=== PATIENT | male | born 1985 | race Caucasian/White ===

== ENCOUNTER 2016-08-17 15:08 | Inpatient (IN) | payer MEDICAID, OTHER ==
[~2016-08-17] VITALS: Ht 165.1 cm; Wt 125.0 kg
[~2016-08-17 15:08] MED LIST: AMN100C PO; CLOZ100T6 PO; HYDR50CA3 PO; LITH300T PO; Therapeutic Multivit/Minerals PO
--- NOTE | 2016-08-17 15:45 | ED.REPORT ---
HPI-Psychiatric Illness Date of Service Aug 17, 2016 ED Provider: Bay Marin MD 31 year old schizophrenic male presents to the ED escorted by police for mental health evaluation. Patient denies suicidal and homicidal ideations, and auditory hallucinations, though he states that he "thinks things over a lot". Recently he has been off of his medications because the facility he is housed at ([facility]) reportedly did not have them. Recently had prolonged inpatient stay here in [facility]. No other complaints at present. . Nursing Notes Stated Complaint: SI Nursing Notes Reviewed: Yes Allergies: Coded Allergies: risperidone (Verified Allergy, Unknown, 05/22/16) Scheduled ([Therapeutic Multivit/Minerals]) 1 TABLET TABLET 1 TABLET PO DAILY Amantadine (Amantadine) 100 Mg Cap 100 MG PO BID Clozapine (Clozapine) 100 Mg Tablet 200 MG PO HS Clozapine (Clozapine) 100 Mg Tablet 100 MG PO DAILY [place] Carbonate ([place] Carbonate) 300 Mg Tablet.er 1,200 MG PO HS Scheduled PRN Hydroxyzine Pamoate (HydrOXYzine Pamoate) 50 Mg Capsule 50 MG PO BID PRN PRN FOR ANXIETY,AGIT, OR INSOMNIA General Time Seen by MD: 15:44 Chief Complaint Other (Mental Health Evaluation) Hx Obtained From: Patient, Police Arrived By: Police Similar Sx Previous: Yes Risk-Psychiatric Illness Suicide Risk Stratification Suicide Risk Factors - Adult: : Prior psych admission RF Statements: Risk factors reviewed Past Medical History Past Medical History Schizophrenia Smoking History Current Every Day Smoker Social History Alcohol Use: In recovery Ambulatory Status Independent Review of Systems Constitutional: Reports: Fatigue, Denies: Chills, Fever Respiratory: Denies: Dyspnea on exertion Cardiovascular: Denies: Chest pain GI: Denies: Abdominal pain Neurologic: Denies: Abnormal movement Psychiatric: Reports: Delusional, Depression, Suicidal ideation, Denies: Agitation, Confusion, Hallucinations, auditory, Hallucinations, visual, Homicidal ideation Complete sys rev & neg: except as marked. Physical Exam Initial Vital Signs Vital Signs (First) Date Time Temp Pulse Resp B/P Pulse Ox O2 Delivery O2 Flow Rate FiO2 08/17/16 15:56 36.4 77 12 140/92 97 Room Air Initial VS: Reviewed Head / Eyes: Atraumatic, Normocephalic Neck: Supple, Non-tender, Full range of motion Abdomen / GI: Soft, Non-tender, No guarding, No rebound, No distention Extremities: Vascular intact, Neuro intact, No swelling, No tenderness General/Constitutional: Awake, Alert, Well developed, Well nourished Appearance / Presentation: Positive: Obese Neurologic: Oriented X3, Speech NL, No motor deficits, No sensory deficits, Memory NL Psychiatric: Not suicidal, Not homicidal, No hallucinations Abnormal Mood/Affect: Positive: Depressed Abnormal Thinking / Perception: Positive: Insight abnormal, Judgment abnormal Head / Eyes: Atraumatic, Normocephalic, PERRL, EOMI Respiratory / Chest: Breath sounds NL, Breath sounds = bilat, No respiratory distress, No rales, No rhonchi, No wheezing Cardiovascular: Heart rate NL, Regular rhythm, Heart sounds NL, Peripheral circulation NL Interpretation & Diagnostics Lab Results Interpretation Result Diagram: 08/17/16210308/17/162103 Test 08/17/16 21:04 White Blood Count 10.4th/mm3 (3.8-10.1) Red Blood Count 5.66mil/mm3 (4.40-5.80) Hemoglobin 16.6g/dL (13.8-17.2) Hematocrit 48.5% (41.0-50.0) Mean Corpuscular Volume 85.7fL (81-100) Mean Corpuscular Hemoglobin 29.3pg (27.0-35.0) Mean Corpuscular Hemoglobin Concent 34.2% (32.0-37.0) Red Cell Distribution Width 13.6% (12.3-15.4) Platelet Count 193bil/L (150-400) Neutrophils (%) (Auto) 57.7% (40-74) Lymphocytes (%) (Auto) 36.9% (14-46) Monocytes (%) (Auto) 4.6% (4-12) Eosinophils (%) (Auto) 0.1% (0-5) Basophils (%) (Auto) 0.5% (0-3) Sodium Level 142mEq/L (134-144) Potassium Level 4.3mEq/L (3.5-5.2) Chloride Level 105mEq/L (97-108) Carbon Dioxide Level 23mmol/L (18-29) Blood Urea Nitrogen 6mg/dL (6-20) Creatinine 0.68mg/dL (0.76-1.27) Estimat Glomerular Filtration Rate 145mL/min (>59) Glucose Level 128mg/dL (60-99) Calcium Level 9.4mg/dL (8.5-10.1) Total Bilirubin 0.6mg/dL (0.0-1.2) Aspartate Amino Transf (AST/SGOT) 18U/L (0-50) Alanine Aminotransferase (ALT/SGPT) 17U/L (0-44) Alkaline Phosphatase 63U/L (25-150) Total Protein 7.3g/dL (6.4-8.4) Albumin 4.2g/dL (3.4-5.0) Thyroid Stimulating Hormone (TSH) 2.170uIU/mL (0.450-4.500) Hold Norman Top Tube Received (Received) [place] Level 2.1mEq/L (0.5-1.5) Lab Results Interpretation: [place] toxic at 2.1 ECG Interpretation Time: 23:55 Interpreted by: ED physician Normal ECG Interpretation: Normal rate (56), Normal sinus rhythm, No acute ischemic changes, Normal QRS, Normal axis, Normal intervals, No change from prior ECGs, Adequate tracing Re-Eval/Medical Decision Med Decision/Clinical Course 31-year-old male presents for mental health evaluation to her recent prolonged psychiatric hospitalization and discharged to a nonmedical psychiatric facility. Reportedly has not been getting his medications however curiously he is noted to have a toxic lithium level of 2.1. This does not appear to be symptomatic. He has been hemodynamically stable and stable on the bus driver/monitor. The patient is hydrated in the emergency department, at this point there are no beds to admit him to the medicine service, anticipating that after hydration he will hopefully have a non-toxic lithium level and at that point would require a designated crisis responder evaluation. Source of Hx: Old records Counseled Regarding: Diagnosis, Lab results Discharge & Departure Shift Change Sign-Out Patient Care Transferred: Yes Additonal Information: To Dr Young at 0300. Needs repeat Li level and DCR eval when cleared. Impression: Primary Impression: Psychosis Psychosis type: unspecified psychosis type Qualified Code: F29 - Unspecified psychosis not due to a substance or known physiological condition Additional Impression: [place] toxicity )( Condition at Discharge: No danger to self, No danger to others, No suicidal ideation, No homicidal ideation Discharge Condition All VS Reviewed: Yes Condition: Stable Referrals: [facility] (PCP) Scribe Attestation Portions of this note were transcribed by Juan Carlos Prajapati. I, Dr. Marin, personally performed the history, physical exam and medical decision-making; I reviewed and confirmed the accuracy of the information in the transcribed note. Signed by: Juan Carlos Prajapati. 08/17/2016, 21:36 copies to: [facility] Bay Marin MD Aug 17, 2016 15:44 JUAN CARLOS PRAJAPATI Aug 17, 2016 15:58
[2016-08-17 15:56] VITALS: BP 140/92; PULSE 77; RESP 12; O2SAT 97
[2016-08-17 21:15] LABS: BASOPHILS % (AUTO) 0.5 % (0-3); EOSINOPHILS % (AUTO) 0.1 % (0-5); MONOCYTES % (AUTO) 4.6 % (4-12); Mean Corpuscular Hemoglobin 29.3 pg (27.0-35.0); Mean Corpuscular Volume 85.7 fL (81-100); NEUTROPHILS % (AUTO) 57.7 % (40-74); Platelet Count 193 bil/L (150-400)
[2016-08-17] MEDS ORDERED: 0.9% Sodium Chloride 1,000 ML IV ONE (23:00)
[2016-08-17 23:30] VITALS: BP 117/64; PULSE 59; RESP 16; O2SAT 98
[2016-08-18] VITALS: BP 121/69; PULSE 55; RESP 16; O2SAT 100
[2016-08-18] MEDS ORDERED: 0.9% Sodium Chloride 1,000 ML IV ONE ×2 (00:30→02:10)
[2016-08-18 02:00] VITALS: BP 125/51; PULSE 62; RESP 18; O2SAT 98
[2016-08-18 03:00] VITALS: PULSE 55; RESP 16; O2SAT 97
[2016-08-18 05:19] VITALS: PULSE 65; RESP 19; O2SAT 99
[2016-08-18 06:22] VITALS: PULSE 59; RESP 14; O2SAT 97
[2016-08-18] MEDS ORDERED: Magnesium Hydroxide 10 mL Oral Concentration PO PRN ×3 (08:10→13:05)
[2016-08-18] MEDS ORDERED: Benzocaine-Menthol Lozenge 2/Pkg MT PRN (08:10)
[2016-08-18] MEDS ORDERED: Alum-Mag Hydrox-Simeth 30 mL Suspension PO PRN ×3 (08:10→13:05)
[2016-08-18] MEDS ORDERED: LORazepam 1 mg Tablet PO PRN ×2 (11:40→13:05)
[2016-08-18] MEDS ORDERED: Benzocaine-Menthol Lozenge 2/Pkg PO PRN ×2 (11:40→13:05)
--- NOTE | 2016-08-18 11:54 | NUR ---
Nursing Admission Note Pt arrived to floor by foot accompanied by ALMAS [id number]. PT is admitted on a 90 LRO Revocation. Pt is a reoccurring and was most recently DCd from [facility] yanely [address] [facility]. Per report Pt stopped taking his meds, left [facility] and has been decompensating. Pt reported to [facility] in ER that he was going to committing a serious crime to get put in detention. On admission assessment Pt is cooperative but easily agitated and inpatient. Pt is tangential and speech is rapid and semi loud. Thinking is disorganized with flight of ideas. Pt c/t be paranoid and delusional with little insight to his mental illness. Pt c/t say "the system fucked me". Pt is religiously preoccupied and fixated on his testicles and the fact that he is not able to have sex. Pt rated anxiety 10/10, depression 9/10, wouldn't or unable to rate SI but stated" If I could find a good way i would". Denies A/V HI, and HI. Pt verbalized for safety and signed no harm contract. Pt oriented to room and currently up for lunch. WCTM sleep, safety, behavior
--- NOTE | 2016-08-18 15:31 | NUR ---
Nursing Note Day Pt has maintained controlled behavior since admission, currently in room, no meds given
[2016-08-18 15:36] VITALS: BP 135/67; PULSE 58; RESP 16
--- NOTE | 2016-08-18 18:17 | NUR ---
Case Management/Counselor: S: "I hate the mental health system!" O: Met with patient. Patient denies S/I and H/I. He also denies auditory and visual hallucinations. He did not rate depression and anxiety. A: Patient is cooperative, religiously preoccupied, delusional, easily agitated, irritable, no insight, limited judgment. P: Follow care plan, coordinate out-patient providers.
--- NOTE | 2016-08-18 23:04 | NUR ---
Nurses Note Evening Patient has remained pleasant,polite and social. He stated he wishes he could stay here on the unit until we discharge him to his own apartment. He remains medication compliant here but the [place] Level this am=0.2. Will maintain q 15min. checks for safety and support. Addendum: 08/18/16 at 2311 by ANGELINA LIU RN Amended: Links added.
--- NOTE | 2016-08-19 05:24 | NUR ---
Pt out on unit interacting with peers, watching movie and joining group. Pt noted that he had had a hard couple weeks and he wanted to get his head back in the right mind space. Asleep at 2315. Pt observed every 15 minutes as ordered.
--- NOTE | 2016-08-19 05:37 | NUR ---
nursing, nights, 11-7 s/o- has appeared to sleep after 2315 during q 15 minute assessments. a- no apparent distress. p- monitor behavior/emotional state, quality, times and amount of sleep, use and effect of medication. wendi
--- NOTE | 2016-08-19 13:37 | NUR ---
Nursing Dayshift: S: "That place is not for me. Six months is too long. I couldn't stand it that long." O: Patient discussing [facility] where he had been staying for a few weeks between admissions here. Slept in this AM and ate a late breakfast. Ate lunch on time with a good appetite at both meals. Minimal interaction with peers noted thus far this shift. C/O being "tired". Noted to slur his speech at times. Anxiety and depression "yes, because I don't have my apartment". Denies harmful thoughts and hallucinations. A: Sedate. Flat. P: CPOC. Monitor mood and behavior. Addendum: 08/19/16 at 1349 by TIAN CONNOLLY RN Amended: Links added.
--- NOTE | 2016-08-19 15:37 | NUR ---
Filling Technician./ c.m. S.:"I feel tired. I took a few naps and I'm still tired." O.: met with pt. to complete his Treatment plan and goals. He complained about feeling tired and sleepy. He also wanted to get different housing after discharge from here. He denied SI/HI, denied AH/VH. He couldn't focus on a conversation well. He felt depressed because he didn't have "a good stable housing". He didn't want to go back to [facility]. "There were some bad things happened. I don't want to talk about it and I'm not going back there." He couldn't rate his depression or anxiety at this time. He was in and out of his room occasionally watching TV or sleeping in a chair near TV. A.: pt. is cooperative, quiet, looks tired and sleepy, scattered in his thoughts. He has a hard time following a conversation. P.: monitor behavior, monitor meds intake, follow care plan.
--- NOTE | 2016-08-19 18:12 | NUR ---
Observations 0700 to 1900 Pt maintained behavioral control throughout the shift. Pt is flat, confused, distracted, disorganized. Pt has trouble focusing or holding trains of thought. "I feel like I'm constantly trying to wake up." Pt has very poor insight though. Pt slept in room for most of morning, and then spent afternoon in TV area. Pt has particular interest in a female pt on unit and contrives to be near her on the unit. Pt seeks interaction with staff and with peers but struggles to hold a conversational thread and becomes tangential. Pt ate 75-100% of meals and was observed every 15 minutes as ordered.
--- NOTE | 2016-08-19 21:09 | HP ---
[address] [address] HISTORY AND PHYSICAL PATIENT: PAT DIAZ : 1985 MR#: [id number] ADMIT: 08/18/2016 JOB ID: [id number] IDENTIFICATION: The patient is a 31-year-old, white male, well-known to the Care Center. Currently single. He had been living at a care center called [facility] in [place] after discharge from our unit after prolonged stay on August 02, 2016. He is on SSI and has suffered schizophrenia for the past 10 years. [place]. His sisters live in [place], and he has been staying at the [facility] residential treatment facility. REASON FOR ADMISSION: Client eloped from the treatment center in violation of his 90 day LR. He complained of suicidal ideation and paranoia and was transported to our unit for stabilization and treatment. HISTORY OF PRESENT ILLNESS: The patient presents for evaluation and treatment of suicidal ideation and psychosis. I met with him for 45 minute evaluation and reviewed course and records kept by [facility]. I also reviewed Social Work reports. Client's main issue is schizophrenia. issues are medication noncompliance and significant substance abuse primarily cannabis. The condition is chronic and has been present for the past 10 years. At present is of a moderate intensity manifesting with symptoms of disorganized thought, poor judgment, poor insight, and poor impulse control. He was making multiple bizarre statements to police saying, "I'm going to start a revolution, I'm sick of this crap, I'm going to commit horrible crimes so I can get put in fpc." Staff reports the client eloped from [facility]. He called his sisters and refuses to return to the home, stating he has been off his meds for three days. Client describes suicidal ideation in a passive manner saying, "If I can find a way, I would." REVIEW OF SYSTEMS: Negative except constitution, feeling tired. MEDICATIONS: Client has been off all of his medications for three days. Prior to that was on Clozaril 100 in the morning 200 night, lithium 1200 at night, and amantadine 100 twice a day. ALLERGIES: Client feels sedated on Risperdal. No other allergies. ILLNESSES: Obesity, left testicular hydrocele. FAMILY MEDICAL HISTORY: Father had schizophrenia. Client states there are multiple problems with drug and alcohol in the family. PAST PSYCHIATRIC HISTORY: Client was initially admitted at age 21 in [place]. He was also in [place] at a long term in [place]. He is currently in outpatient with [facility]. He was admitted and discharged from our unit in both May 2016 and July 2016. PSYCHOSOCIAL: Born and raised in [place]. Attended school to the 6th grade and got a GED at 19. Denies history of trauma. Drug and alcohol use: abuse in the past including huffing inhalants, smoking cocaine and heroin. He uses cannabis daily and drinks as much coffee as he can. Lethality: Client has passive suicidal ideation stating if he could find a way he would. No previous attempts. Legal history: Client currently on a revocation of his 90 day LRA. Relationship history: Single. PHYSICAL EXAMINATION: Vital signs 138/67, pulse of 58, respirations 16, afebrile. I reviewed the physical exam from the ED which was essentially normal. Mental status: The client was disheveled, sitting in a hospital gown on the couch. He had poor eye contact and is moderately obese. His behavior was calm. His attitude was aloof, detached and guarded. Speech was monotone. Mood dysphoric. Affect congruent with no lability. Thought process: Client had a difficult time relating a coherent history. His thought process was very concrete. Focused on not taking meds and getting out of his current placement. He did not appear to be responding to internal stimuli. Thought content: Client denies all symptoms of mental illness and is very upset about having this label. Client alert oriented to person, place, and date. Concentration mildly impaired. Insight and judgment significantly impaired. Impulse control poor. Reality testing moderately impaired. Competence status to current stressors is being overwhelmed. IMPRESSION: Client is a 31-year-old, white male, was been struggling with symptoms of psychosis and mood instability for the past 10 years. This complicated by ongoing medication noncompliance and substance abuse. In the past, he has been stabilized on Clozaril and lithium and was discharged on this by Dr. Cantu on August 02, 2016. He has been able to maintain in his home until last three days when he stopped the meds. I was unable to identify any specific stressors. He is currently showing multiple symptoms of psychosis with disorganized thought, perseveration and extremely poor judgment and insight. Recommend to be admitted for stabilization and care. DIAGNOSES: [place] I: Schizophrenia, paranoid type. [place] II: None. [place] III: Left testicular hydrocele. [place] IV: Unknown. D[place] V: 30 PLAN: Recommend client be admitted to our unit and be provided with high degree of safety through the structure and active adult engagement he received here. We will have him participate in one-to-one unit and group activities focused on improving coping skills, reality based thinking and mood stability. Will work with client to future plan on how he will have housing and care. The client will have a chance to talk with his health companion on Sunday and go to court on Sunday for a 90 day petition revocation. Anticipate a 14-day stay.
--- NOTE | 2016-08-20 05:32 | NUR ---
nursing, nights, 11-7 s/o- has appeared to sleep after 2214 during q 15 minute assessments. a- no apparent distress. p- monitor behavior/emotional state, quality, times and amount of sleep, use and effect of medication. wendi
--- NOTE | 2016-08-20 06:11 | NUR ---
Pt out on unit until bed time watching TV and interacting with peers. Asleep at 2215. Pt observed every 15 minutes as ordered.
[2016-08-20 10:57] VITALS: BP 127/86; PULSE 92; RESP 16
--- NOTE | 2016-08-20 11:35 | PCM.PNPSY ---
Subjective Date of Service Aug 20, 2016 Subjective I spent 30 minutes both reviewing his treatment plan and providing supportive and educational psychotherapy. I spent more than 50% of the time counseling the patient. I reviewed the treatment plan with the patient and discussed options available including the potential risks, benefits and side effects. Chidi reports that he feels like he is constantly trying to wake up. The Staff reports that he has been participating in one-to-one unit and group activities that he tends to be quite passive. He slept 8 hours. He denies medication side effects. Chidi is appearing sedated disorganized and with a very flat affect. He has little motivation and high degree of lethargy. Patient was able to identify his medications and what they were used to treat. He appeared to understand the need for medications by the questions he asked during our discussion. Current Medications Current Medications Amantadine HCl 100 mg BID PO Last administered on 08/20/16 10:02; Admin Dose 100 MG; Start 08/18/16 at 20:30 Clozapine 100 mg DAILY PO Last administered on 08/20/16 10:01; Admin Dose 100 MG; Start 08/19/16 at 08:30 Clozapine 200 mg HS PO Last administered on 08/19/16 20:53; Admin Dose 200 MG ; Start 08/18/16 at 21:00 [place] Carbonate 1,200 mg HS PO Last administered on 08/19/16 20:55; Admin Dose 1,200 MG; Start 08/18/16 at 21:00 Multivitamins/ Minerals Therapeutic 1 tablet DAILY PO Last administered on 08/20 10:02; Admin Dose 1 TABLET; Start 08/19/16 at 08:30 Nicotine 1 patch DAILY TOPICAL Last administered on 08/20/16 08:30; Admin Dose 1 PATCH; Start 08/19/16 at 08:30 Nicotine Polacrilex 2 mg Q4H PRN BUCCAL Last administered on 08/20/16 10:04; Admin Dose 2 MG; Start 08/18/16 at 13:05 Nicotine Polacrilex 2 mg Q4H PRN PO Last administered on 08/18/16at 12:38; Admin Dose 2 MG; Start 08/18/16 at 11:40; Stop 08/18/16 at 13:08; Status DC Mental Status Exam Appearance: Disheveled Attitude: Guarded Behavior: Distractible Affect: Restricted, Blunted, Flat Mood: Irritable, Dysthymic Thought Process/Associations: Tangential Speech Production: Normal Speech Rate: Normal Speech Articulation: Normal Thought Content: Negativistic Danger to Self/Suicidal Ideati: None Danger to Others: None Delusions: Paranoid (Endorses), Grandiose (Endorses) Memory: Grossly Intact Estimate Intellectual Function: Average Attention/Concentration & Cogn: Impaired Insight: Limited Judgement: Limited Result Diagram: 08/17/16210308/17/162103 Mental Health Plan Client is a 31-year-old, white male, was been struggling with symptoms of psychosis and mood instability for the past 10 years. This is complicated by ongoing medication noncompliance and substance abuse. In the past, he has been stabilized on Clozaril and lithium and was discharged on this by Dr. Cantu on August 02, 2016. He has been able to maintain in his assisted living home until last three days when he stopped the meds. I was unable to identify any specific stressors. He is currently showing multiple symptoms of psychosis with disorganized thought, perseveration and extremely poor judgment and insight. Here on the unit he has been compliant and easily redirected over the past 24 hours [place] Balmorhea I: Schizophrenia, paranoid type. [place] II: None. [place] III: Left testicular hydrocele. [place] IV: Unknown. [place] V: 30 Medications Treatments Patient is being provided with a high degree of safety through the structure and active adult engagement. We will focus on developing improved coping skills and identifying stressors that may have led to current episode. We will attempt to: Integrate into therapeutic groups, milieu and individual therapy. Maintain in a closely monitored and structured unit Provide low-stimulation environment Obtain collateral data to assist in treatment planning Assess degree of lability of affect and impulse control Decrease frequency of relapse and need for re-hospitalization Establish a consistent sleep pattern Medication effective in stabilization of mood and/or thought process Tolerates medication without side effects Patient will be on the following psychiatric medications: Clozaril 100 every morning 200 at bedtime [place] 1200 mg at bedtime Amantadine 100 mg twice a day Education: Educate patient about recreational drug use as an etiology Educate about metabolic etiologies related to obesity Address patient's legal status Patient is on a 90 day revocation of involuntary treatment hold. Patient will be given the opportunity to talk to her director college and the radio board operator on Sunday Brandon Grant MD Aug 20, 2016 11:35
--- NOTE | 2016-08-20 13:44 | NUR ---
Nursing Dayshift: S: "The voices are my family telling me to be somebody I'm not." O: Patient acknowledging AH per above statement. Denies VH, and harmful thoughts. Anxiety "much better". Depression "not so much". Has been sleeping in the TV area in one of the chairs. Easily awakened. Speech a little slurred. Has been awake for meals with a good appetite. Not much interaction with peers. A: Med compliant. Sedate. P: CPOC. Monitor mood and behavior. Addendum: 08/20/16 at 1350 by TIAN CONNOLLY RN Amended: Links added.
--- NOTE | 2016-08-20 15:01 | NUR ---
Gasoline Engine Inspector./ c.m. S.:"I'm tired..." O.: pt. was in and out of his room sleeping/napping a lot. He spent some time sleeping in a chair in TV area. He denied SI/HI, denied VH. He admitted having "some" AH. He denied paranoid/delusional thoughts. He said that depression or anxiety "wasn't much." A.: pt. is isolative, quiet, looks sleepy and tired. P.: monitor behavior, monitor meds intake, follow care plan.
--- NOTE | 2016-08-20 18:20 | NUR ---
Observations 0700 to 1900 Pt affect was pleasant, polite and cooperative Pt was sleeping on and off during the day. Pt speech and eye contact was good. Pt was social with staff and peers when approached. Pt maintained behavior throughout the shift. Pt attended meals in the D.R. and ate 100% of breakfast, 100% of lunch and 100% of dinner. Pt ate snack. Pt was observed every 15 minutes throughout the shift as ordered.
--- NOTE | 2016-08-20 21:28 | NUR ---
NURSING NOTE [id number] Orientation= x3 Mood= "nervous about my future" Affect= pleasant, calm, polite Behavior= pt has been visible in the milieu, his sister visited, he is social w/peers, sitting out in common area watching TV w/peers, smiles and laughs off and on (appropriately), participated in wrap-up Thought processes= some paranoia r/t his family (and blaming them for being hospitalized here), denies SI/HI/AH/VH this evening Addendum: 08/21/16 at 0606 by RENNY CHAN RN As of 06:00, pt. appears to have slept 7.5 hrs and is still resting in bed w/eyes closed.
--- NOTE | 2016-08-21 02:48 | NUR ---
OBSERVATIONS 1900 TO 0700 Pt was pleasant, social, and cooperative. Pt mood was positive, flat affect. Pt watched TV with peers and attended wrap-up group. Pt stated that visit with friends went well and that his day was pretty good but that that was all he wanted to share. Maintained Q15 safety checks as directed. Addendum: 08/21/16 at 3496 by CATHI JOSE [facility] Pt asleep at 2230 and slept through the night.
--- NOTE | 2016-08-21 11:59 | NUR ---
Nursing: Day shift: S: "It was relationship problems" (that led to rehospitalization). O: Chidi thong late and ate breakfast from available food on unit. He is unkempt in appearance. Eating well. No requests for anxiety PRN's or pain pr meds so far today. Comfortable with this familiar environment No evidence of Chidi attending to internal stimuli. Watching TV. Behavior in control. A: Institionalized?. p: Continue to encourage participation iin activities on unit. Addendum: 08/21/16 at 1213 by LYN GREEN RN Amended: Links added.
[2016-08-21 12:19] VITALS: BP 127/77; PULSE 85; RESP 17
--- NOTE | 2016-08-21 16:09 | NUR ---
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 and MD together in pt.'s room. He was in bed sleeping/resting. He said that he was "taking advantage of rest." He slept "pretty good" last night. He denied SI/HI, denied AH/VH. He said that "they run out of medications" at [facility] so he didn't get meds for 3 days. [employer] spoke with Thelma from [facility] who said that pt. could come back over there if he wanted to do that. Pt. was in and out of his room mostly keeping to himself. A.: pt. is cooperative, isolative, quiet. P.: monitor behavior, follow care plan.
--- NOTE | 2016-08-21 17:35 | PCM.PNPSY ---
Subjective Date of Service Aug 21, 2016 Subjective The patient reports that he is doing well today. He has no particular mental health complaints. He is uncertain whether he wishes to return to [facility]. He reported that because he was unable to get a lab draw he was unable to get medications for 3 days preceding his admission to the hospital. He denies any side effects or medical issues. Sleep: "Pretty good" Appetite: On a vegan diet with good appetite Suicidal and homicidal ideation: Denies Auditory hallucinations/Visual hallucinations: Denies Other Psychotic Symptoms: Denies Anxiety: Denies Depression: Denies Mental Status Exam Vital Signs Vital Signs Date Time Temp Pulse Resp B/P Pulse Ox O2 Delivery O2 Flow Rate FiO2 08/21/16 12:19 36.0 85 17 127/77 Appearance: Unkept Attitude: Cooperative, Guarded (mildly) Behavior: No unusual behavior Affect: Restricted, Blunted Mood: Dysthymic Thought Process/Associations: Logical/Sequential Speech Production: Paucity Speech Rate: Lags/Latency (mild) Speech Articulation: Normal Thought Content: Negativistic Danger to Self/Suicidal Ideati: None Danger to Others: None Delusions: Paranoid (denies), Grandiose (denies today) Hallucinations: Auditory (Denies), Visual (Denies) Consciousness: Alert Orientation: Person, Place, Date, Situation Memory: Grossly Intact Estimate Intellectual Function: Average Attention/Concentration & Cogn: Impaired Insight: Limited Judgement: Limited Result Diagram: 08/17/16210308/17/162103 Mental Health Plan Client is a 31-year-old male with a ten-year history of psychotic disorder and multiple inpatient hospitalizations. The patient has an ongoing substance use disorder primarily with marijuana which complicates his history. The patient had a prior good response to lithium and clozapine when treated in [place] and again responded to this combination at past hospitalization but had worsening symptoms following discontinuation due to failure to complete laboratory draw. Initially, the patient was showing an old whole signs and symptoms of psychotic thought disorder with thought disorganization and other symptoms however he currently is exhibiting no acute symptoms other than perhaps negative symptoms. [place] I: Schizophrenia, paranoid type. [place] II: Deferred. [place] III: Left testicular hydrocele. [place] IV: Moderate [place] V: GAF = 30 Medications Amantadine 100 mg twice daily Clozapine 100 mg daily and 200 mg nightly [place] carbonate 1200 mg at bedtime Treatments 1. The patient is provided with a safe environment with no additional precautions necessary at this time. 2. The patient is encouraged to participate in group and milieu therapy. 3. The patient will meet with the treatment team on a daily basis. 4. The patient may return to [facility] should he wish to do so. 5. The patient will be continued on the above medications. 6. The patient is encouraged to abstain from the use of drugs or alcohol. 7. The patient is currently on a petition for revocation of a 90 day order but as it appears to have been a treatment-related issue, once housing issues are addressed the patient will likely be able to be discharged. 8. CBC, CMP, prolactin level, and [place] level will need to be reassessed on 08/23/2016. Monster Dugan MD Aug 21, 2016 17:35
--- NOTE | 2016-08-21 19:56 | NUR ---
Obs Dayshift Pt is quiet, guarded, little engaging w/ some peers. Tends to liek talking w/ one or two female peers more than others. Pt is sexually preoccupied, not Oriented to his situation or illness. Pt is guarded about the last few weeks that he has been away from here and what happened at [facility] to make him want to leave and not go back. Pt stated that he wants the Hospital now to find him a place of his own when it comes time to DC. Pt has a sad, depressed affect. Vague with answering questions. Poor ADL's, Ok meals
--- NOTE | 2016-08-22 02:12 | NUR ---
Observations 1900 to 0700 Pt affect and behavior are the same as in his previous times here. Pt spent his entire night watching movies. Pt went to his room as soon as the movie ended. Pt first appeared asleep 21:15 and was observed every 15 minutes through the night as directed.
--- NOTE | 2016-08-22 05:30 | NUR ---
Noc shift Pt appeared to be asleep throughout the night, no apparent distress. Monitored pt q15 min.
[2016-08-22 10:30] VITALS: BP 121/72; PULSE 65; RESP 15
--- NOTE | 2016-08-22 12:20 | NUR ---
Nursing: Day shift: S: I would like to have a place of my own. ...Kind of bored. O: sabina has spent most of shift so far in his room. He was out for meals. Appeared disheveled with matted hair. At 1515, pt showered and changed clothes. Appearance much improved. Flat facial expression. No outbursts or behavioral dyscontrol. Takes meds as offered. Short answers when asked about plans for after discharge. PRN meds: Nicotine losenges requested and received at 0900 and 1300. Denies suicidal ideation or anxiety. Depression is 12/04. A: Nonchalant/passive in regard to plans after discharge. P: Continue to assess effectiveness of meds and support Sabina as placement options are worked out. Addendum: 08/22/16 at 1335 by LYN GREEN RN Amended: Links added.
--- NOTE | 2016-08-22 15:35 | PCM.PNPSY ---
Subjective Date of Service Aug 22, 2016 Subjective The patient reports that he is not sure whether he would like to return to [facility] as it somehow affects his sexual performance. The patient had difficulty describing this. He reports that he felt that he was being "poked" in the middle of the night but became irritable when clarification was requested. The patient also stated that he could not return to live with his sisters and he did not want to return to [place]. He stated that he wanted us to find him "a place in the [facility]." It was explained to the patient's that this option did not exist for him. He then stated he would like to have his own apartment and use his $773 per month with his food stamps. A cursory review of rents in the local area as well in the [facility] suggest they began in the $600 per month range and go rapidly up, likely outside of his affordability. He denies side effects. Sleep: 7.5 hours Appetite: Okay Suicidal and homicidal ideation:denies Auditory hallucinations/Visual hallucinations: Denies Other Psychotic Symptoms: Limited insight Anxiety: Some Depression: "More than 5/10" Mental Status Exam Vital Signs Vital Signs Date Time Temp Pulse Resp B/P Pulse Ox O2 Delivery O2 Flow Rate FiO2 08/22/16 10:30 36.4 65 15 121/72 Appearance: Unkept Attitude: Cooperative, Guarded (mildly) Behavior: No unusual behavior Affect: Restricted, Blunted Mood: Dysthymic Thought Process/Associations: Logical/Sequential Speech Production: Paucity Speech Rate: Lags/Latency (mild) Speech Articulation: Normal Thought Content: Negativistic Danger to Self/Suicidal Ideati: None Danger to Others: None Delusions: Paranoid (denies), Grandiose (denies today) Hallucinations: Auditory (Denies), Visual (Denies) Consciousness: Alert Orientation: Person, Place, Date, Situation Memory: Grossly Intact Estimate Intellectual Function: Average Attention/Concentration & Cogn: Impaired Insight: Limited Judgement: Limited Result Diagram: 08/17/16210308/17/162103 Mental Health Plan Client is a 31-year-old male with a ten-year history of psychotic disorder and multiple inpatient hospitalizations. The patient has an ongoing substance use disorder primarily with marijuana which complicates his history. The patient had a prior good response to lithium and clozapine when treated in [place] and again responded to this combination at past hospitalization but had worsening symptoms following discontinuation due to failure to complete laboratory draw. Initially, the patient was showing signs and symptoms of psychotic thought disorder with thought disorganization and other symptoms however he currently is exhibiting no acute symptoms other than perhaps negative symptoms and limited insight. The patient is unsure where he will go on discharge and reports that he does not feel comfortable returning to [facility]. [place] I: Schizophrenia, paranoid type. [place] II: Deferred. [place] III: Left testicular hydrocele. [place] IV: Moderate [place] V: GAF = 35 Medications Amantadine 100 mg twice daily Clozapine 100 mg daily and 200 mg nightly [place] carbonate 1200 mg at bedtime Treatments 1. The patient is provided with a safe environment with no additional precautions necessary at this time. 2. The patient is encouraged to participate in group and milieu therapy. 3. The patient will meet with the treatment team on a daily basis. 4. The patient may return to [facility] should he wish to do so. No other housing is clearly available. 5. The patient will be continued on the above medications. 6. The patient is encouraged to abstain from the use of drugs or alcohol. 7. The patient is currently on a petition for revocation of a 90 day order but as it appears to have been a treatment-related issue, once housing issues are addressed the patient will likely be able to be discharged. 8. CBC, CMP, prolactin level, and [place] level will need to be reassessed on 08/23/2016. Monster Dugan MD Aug 22, 2016 15:35
--- NOTE | 2016-08-22 15:52 | NUR ---
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 I'm trying to deal with what I have to do in a future. I'm not going back to [employer]... 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 and MD together. Pt. denied SI/HI, denied AH/VH, denied paranoid/delusional thoughts. He rated depression at 5/10. He couldn't rate anxiety but said that it was "just about future." He refused to go back to [facility]. He talked about renting his own apartment. He thought that he had enough money for that. He didn't want to deal with "mental health" again after discharge. A.: pt. is cooperative, quiet, isolative. He has a flat affect and looks depressed. P.: monitor behavior, follow care plan.
--- NOTE | 2016-08-22 18:43 | NUR ---
Observations [id number] Pt was asleep upon start of shift. Pt did attend meals, eating 100%. Mood appears flat and distant. Pt spent time in the common areas with peers, but did not socialize much. With encouragement from staff, Pt did take a shower today. He attended art group for a short time. Pt was pleasant with staff and peers. He was observed every 15 minutes of shift as directed.
--- NOTE | 2016-08-22 18:56 | NUR ---
Obs Dayshift Pt is much more calm, quiet, and reserved than I have seen in the past. Pt is not realistic or oriented to his situation and his options for DC. Pt participates in groups, little conversing or engaging w/ peers. Pt has much better ADL's, took a shower and washed clothing after some pushing from staff. Good meals
--- NOTE | 2016-08-22 22:27 | NUR ---
Nurses Note Evening Patient remains polite,pleasant and social with select peers. He has attended groups intermittently. His affect has been constricted,his mood neutral,his insight minimal with impaired ability to problem solve realistically. Patient has cared for hygiene needs with encouragement. He has remained medication compliant without adverse effects. Will continue to encourage improved insight,problem solving,coping skills with continued medication compliance. Addendum: 08/22/16 at 2231 by ANGELINA LIU RN Amended: Links added.
--- NOTE | 2016-08-23 00:53 | NUR ---
Observations 1900 to 0700 Pt affect and behavior are the same as in his previous times here. Pt spent his entire night watching movies. Pt went to his room as soon as the movie ended. Pt first appeared asleep 22:45 and was observed every 15 minutes through the night as directed.
--- NOTE | 2016-08-23 04:42 | NUR ---
noc shift 11-7 pt appears to be sleeping well through the night with no distress, total of 6 hrs ad q15 min. checks.
[2016-08-23 10:01] LABS: EOSINOPHILS % (AUTO) 0.1 % (0-5); MONOCYTES % (AUTO) 4.6 % (4-12); Mean Corpuscular Hemoglobin 29.5 pg (27.0-35.0); Mean Corpuscular Volume 86.9 fL (81-100); NEUTROPHILS % (AUTO) 65.5 % (40-74); Platelet Count 168 bil/L (150-400)
--- NOTE | 2016-08-23 12:22 | NUR ---
Nursing Note [id number] Mood, Behavior S/O: Pt c/o being tired this morning & has been in his room most of the morning. Pt d/n attend groups. He rates depression at a "5" on a scale of 1-10/10 the worst with a "little bit" of anxiety. Denies suicidal ideation. Pt states that he wants to have his own apartment & showed me a place that might be available. Conversation tracking clear & organized with normal rate & rhythm. No delusional statements. A: Pt has stable mood. P: Provide supportive environment. Monitor medications & effects.
--- NOTE | 2016-08-23 16:17 | PCM.PNPSY ---
Subjective Date of Service Aug 23, 2016 Subjective The patient reports that he is "doing okay" but was somewhat frustrated by the lack of available apartments in [place]. He is considering returning home to [place] and planned on calling his mother today to see if they could provide funding. He does not feel that he could live with his sisters and does not feel he could return to [facility]. He denies any side effects. He denies any acute medical issues. Sleep: "Okay" Appetite: "Fine" Suicidal and homicidal ideation: Denies Auditory hallucinations/Visual hallucinations: Denies Other Psychotic Symptoms: Denies Anxiety: 0/10 Depression: 0/10 Mental Status Exam Appearance: Neat/well groomed Attitude: Cooperative, Guarded (mildly) Behavior: No unusual behavior Affect: Restricted Mood: Dysthymic Thought Process/Associations: Logical/Sequential Speech Production: Paucity Speech Rate: Normal Speech Articulation: Normal Thought Content: Negativistic Danger to Self/Suicidal Ideati: None Danger to Others: None Hallucinations: Auditory (Denies), Visual (Denies) Consciousness: Alert Orientation: Person, Place, Date, Situation Memory: Grossly Intact Estimate Intellectual Function: Average Attention/Concentration & Cogn: Impaired Insight: Limited Judgement: Limited Result Diagram: 08/23/16 0945 08/23/16 0945 Mental Health Plan Client is a 31-year-old male with a ten-year history of psychotic disorder and multiple inpatient hospitalizations. The patient has an ongoing substance use disorder primarily with marijuana which complicates his history. The patient had a prior good response to lithium and clozapine when treated in [place] and again responded to this combination at past hospitalization but had worsening symptoms following discontinuation due to failure to complete laboratory draw. Initially, the patient was showing signs and symptoms of psychotic thought disorder with thought disorganization and other symptoms however he currently is exhibiting no acute symptoms other than perhaps negative symptoms and limited insight. The patient is unsure where he will go on discharge and reports that he does not feel comfortable returning to [facility] or to his sister's. The patient may return to [place] depending on whether family will help him to return. [place] I: Schizophrenia, paranoid type. [place] II: Deferred. [place] III: Left testicular hydrocele. [place] IV: Moderate [place] V: GAF = 35 Medications Amantadine 100 mg twice daily Clozapine 100 mg daily and 200 mg nightly [place] carbonate 1200 mg at bedtime Treatments 1. The patient is provided with a safe environment with no additional precautions necessary at this time. 2. The patient is encouraged to participate in group and milieu therapy. 3. The patient will meet with the treatment team on a daily basis. 4. The patient may return to [facility] should he wish to do so. No other housing is clearly available. 5. The patient will be continued on the above medications. 6. The patient is encouraged to abstain from the use of drugs or alcohol. 7. The patient is currently on a petition for revocation of a 90 day order but as it appears to have been a treatment-related issue, once housing issues are addressed the patient will likely be able to be discharged. 8. Awaiting laboratory results, lithium in therapeutic range 0.7. Monster Dugan MD Aug 23, 2016 16:17 Monster Dugan MD Aug 23, 2016 16:17
[2016-08-23 17:34] VITALS: BP 131/80; PULSE 81; RESP 16
--- NOTE | 2016-08-23 17:49 | NUR ---
[facility] Day Shift Pt maintained behavioral control throughout the shift. Pt affect appears mostly flat, brighter when engaged with staff and peers. Pt spends most of the shift resting in his room or sitting quietly/watching TV/engaging with peers in the dining room. Pt is pleasant with staff and peers when active on the unit. Pt attended community meeting in the AM. Pt did not participate in unit group activities throughout the shift. Pt attended all meals and ate approx 100% of all meals.
--- NOTE | 2016-08-24 05:19 | NUR ---
nursing, nights, 11-7 s/o- has appeared to sleep after 2330 during q 15 minute assessments. a- no apparent distress. p- monitor behavior/emotional state, quality, times and amount of sleep, use and effect of medication. wendi
--- NOTE | 2016-08-24 05:40 | NUR ---
Pt out on unit watching TV and interacting with others. Asleep at 2330. Pt observed every 15 minutes as ordered.
--- NOTE | 2016-08-24 11:24 | NUR ---
Nursing Note [id number] Behavior S/O: Pt continually asking, "Is everything okay?" She stated, "He (the devil) wants me to hear the voices....I'm really afraid something bad will happen when I get out of here." Pt requesting cell phone to write down phone numbers. Pt wrote all numbers in her phone. Pt tracking well & able to get numbers without problems. Pulse high at 120. Rechecked manually at 100. Other VS WNL. Pt up & walking about the unit with walker. Steady gait. Blood sugar this at 0700 was 212. Pt requesting snacks between meals. A: Pt is paranoid. P: Provide supportive environment. Monitor medications & effects. Addendum: 08/24/16 at 1437 by AURA WHITE RN Note on wrong pt. Corrected note- S/O: Pt pleasant & cooperative with cares & medications. Attended & participated in groups today. Currently out in the dining room visiting appropriately with peers. Conversation tracking clear & organized with normal rate & rhythm. Pt d/n appear to be responding to internal stimuli. Good appetite. VS stable. A: Pt has stable mood. P: Provide supportive environment. Monitor medications & effects.
[2016-08-24 11:33] VITALS: BP 146/94; PULSE 91; RESP 17
--- NOTE | 2016-08-24 18:00 | PCM.PNPSY ---
Subjective Date of Service Aug 24, 2016 Subjective The patient reports that he is "doing okay" but did not call his mother as he stated he would yesterday; he stated he would try to call her today. He declined assistance in making the call. This group underwriter offered to assist and be present if needed for the phone call. He continues to report that he does not feel that he could live with his sisters and does not feel he could return to [facility]. He denies any side effects. He denies any acute medical issues. Sleep: "Napping" 5.75 hours per staff Appetite: "Pretty good" Suicidal and homicidal ideation: Denies Auditory hallucinations/Visual hallucinations: Denies Other Psychotic Symptoms: Denies Anxiety: "Pretty bearable" Depression: 0/10 Mental Status Exam Vital Signs Vital Signs Date Time Temp Pulse Resp B/P Pulse Ox O2 Delivery O2 Flow Rate FiO2 08/24/16 11:33 36.0 91 17 146/94 Appearance: Neat/well groomed Attitude: Cooperative, Guarded (mildly) Behavior: No unusual behavior Affect: Restricted Mood: Dysthymic Thought Process/Associations: Logical/Sequential Speech Production: Paucity Speech Rate: Normal Speech Articulation: Normal Thought Content: Negativistic Danger to Self/Suicidal Ideati: None Danger to Others: None Hallucinations: Auditory (Denies), Visual (Denies) Consciousness: Alert Orientation: Person, Place, Date, Situation Memory: Grossly Intact Estimate Intellectual Function: Average Attention/Concentration & Cogn: Impaired Insight: Limited Judgement: Limited Result Diagram: 08/23/16 0945 08/23/16 0945 Mental Health Plan Client is a 31-year-old male with a ten-year history of psychotic disorder and multiple inpatient hospitalizations. The patient has an ongoing substance use disorder primarily with marijuana which complicates his history. The patient had a prior good response to lithium and clozapine when treated in [place] and again responded to this combination at past hospitalization but had worsening symptoms following discontinuation due to failure to complete laboratory draw. Initially, the patient was showing signs and symptoms of psychotic thought disorder with thought disorganization and other symptoms however he currently is exhibiting no acute symptoms other than perhaps negative symptoms and limited insight. The patient is unsure where he will go on discharge and reports that he does not feel comfortable returning to [facility] or to his sister's. The patient may return to [place] depending on whether family will help him to return. The patient has yet to make contact with family members. The patient appears to have a limited understanding of the cost of living independently. [place] I: Schizophrenia, paranoid type. [place] II: Deferred. [place] III: Left testicular hydrocele. [place] IV: Moderate [place] V: GAF = 40 Medications Amantadine 100 mg twice daily Clozapine 100 mg daily and 200 mg nightly [place] carbonate 1200 mg at bedtime Treatments 1. The patient is provided with a safe environment with no additional precautions necessary at this time. 2. The patient is encouraged to participate in group and milieu therapy. 3. The patient will meet with the treatment team on a daily basis. 4. The patient may return to [facility] should he wish to do so. No other housing is clearly available. 5. The patient will be continued on the above medications. 6. The patient is encouraged to abstain from the use of drugs or alcohol. 7. The patient is currently on a petition for revocation of a 90 day order but as it appears to have been a treatment-related issue, once housing issues are addressed the patient will likely be able to be discharged. 8. Prolactin level down to 14.8 and lithium level in the therapeutic range at 0.7, other lab results essentially within normal limits Monster Dugan MD Aug 24, 2016 18:00
--- NOTE | 2016-08-24 21:31 | NUR ---
Observations 0900 to 2130 Pt affect was pleasant, polite and cooperative. Pt was in [place] and common areas most of the day. Pt speech and eye contact was good. Pt was social with staff and peers when approached. Pt maintained behavior throughout the shift. Pt attended meals in the D.R. and ate 100% of breakfast, 100% of lunch and 100% of dinner. Pt ate snack. Pt attended wrap up group and stated that he met his goal for the day. Pt rated his mood and day a 7/10 with 10 being the best. Pt was observed every 15 minutes throughout the shift as ordered.
--- NOTE | 2016-08-24 22:08 | NUR ---
Nursing Note [id number] Patient thanked staff for talking with him, discussing his interest in heavy metal music. Active on the milieu, watching tv and interacting appropriately with peers. Waiting to hear from family to hear if he can go to [place]. Takes his meds and meals, choosing to eat "vegan". Expressed an interest in "working out again". Sleeps without concern.
--- NOTE | 2016-08-25 05:43 | NUR ---
nursing, nights, 11-7 s/o- has appeared to sleep after 2200 during q 15 minute assessments. a- no apparent distress. p- monitor behavior/emotional state, quality, times and amount of sleep, use and effect of medication. wendi
--- NOTE | 2016-08-25 05:46 | NUR ---
Pt out on unit interacting with peers and watching TV. Asleep at 2200. Pt observed every 15 minutes as ordered.
--- NOTE | 2016-08-25 12:12 | NUR ---
Nursing note Pt. denies feelings of anxiety, depression, self harm, or hallucinations. States he is feeling "fine", but "very tired because of my medication". pt. spent most of morning napping or visiting with other patients.
--- NOTE | 2016-08-25 17:57 | NUR ---
Nursing Note Eves: Eating well at meals. Less sedate later in shift. Complementary to staff. Will continue to monitor.
[2016-08-25 17:58] VITALS: BP 101/64; PULSE 70; RESP 12
--- NOTE | 2016-08-25 20:26 | PCM.PNPSY ---
Subjective Date of Service Aug 25, 2016 Subjective The patient reports that he was unable to reach his family and has left messages and is feeling frustrated by the process. He then corrects himself and states that he did not actually call them. He would like staff to call relatives to see what can be arranged regarding possible return to [place] and he would like his protective payee switched to independent although this was explained that it is more complicated and would have to be arranged after he moves to [place] or at a later date if he were to stay here. He continues to report that he does not feel that he could live with his sisters and does not feel he could return to [facility]. He denies any side effects. He denies any acute medical issues. Sleep: 7 hours per staff Appetite: "good" Suicidal and homicidal ideation: Denies Auditory hallucinations/Visual hallucinations: Denies Other Psychotic Symptoms: Denies Anxiety: "Trying to avoid things" Depression: "Still feeling a little depressed" regarding court and housing. Mental Status Exam Vital Signs Vital Signs Date Time Temp Pulse Resp B/P Pulse Ox O2 Delivery O2 Flow Rate FiO2 08/25/16 17:58 36.8 70 12 101/64 Appearance: Neat/well groomed Attitude: Cooperative, Guarded (mildly) Behavior: No unusual behavior Affect: Restricted Mood: Dysthymic Thought Process/Associations: Logical/Sequential Speech Production: Paucity Speech Rate: Normal Speech Articulation: Normal Thought Content: Negativistic Danger to Self/Suicidal Ideati: None Danger to Others: None Hallucinations: Auditory (Denies), Visual (Denies) Consciousness: Alert Orientation: Person, Place, Date, Situation Memory: Grossly Intact Estimate Intellectual Function: Average Attention/Concentration & Cogn: Impaired Insight: Limited Judgement: Limited Result Diagram: 08/23/16 0945 08/23/16 0945 Mental Health Plan Client is a 31-year-old male with a ten-year history of psychotic disorder and multiple inpatient hospitalizations. The patient has an ongoing substance use disorder primarily with marijuana which complicates his history. The patient had a prior good response to lithium and clozapine when treated in [place] and again responded to this combination at past hospitalization but had worsening symptoms following discontinuation due to failure to complete laboratory draw. Initially, the patient was showing signs and symptoms of psychotic thought disorder with thought disorganization and other symptoms however he currently is exhibiting no acute symptoms other than perhaps negative symptoms and limited insight. The patient is unsure where he will go on discharge and reports that he does not feel comfortable returning to [facility] or to his sister's. The patient may return to [place] depending on whether family will help him to return. The patient has yet to make contact with family members. The patient appears to have a limited understanding of the cost of living independently. [place] I: Schizophrenia, paranoid type. [place] II: Deferred. [place] III: Left testicular hydrocele. [place] IV: Moderate [place] V: GAF = 40 Medications Amantadine 100 mg twice daily Clozapine 100 mg daily and 200 mg nightly [place] carbonate 1200 mg at bedtime Treatments 1. The patient is provided with a safe environment with no additional precautions necessary at this time. 2. The patient is encouraged to participate in group and milieu therapy. 3. The patient will meet with the treatment team on a daily basis. 4. The patient may return to [facility] should he wish to do so. No other housing is clearly available. 5. The patient will be continued on the above medications. 6. The patient is encouraged to abstain from the use of drugs or alcohol. 7. The patient is currently on a petition for revocation of a 90 day order but as it appears to have been a treatment-related issue, once housing issues are addressed the patient will likely be able to be discharged. 8. Prolactin level down to 14.8 and lithium level in the therapeutic range at 0.7, other lab results essentially within normal limits Monster Dugan MD Aug 25, 2016 20:26
--- NOTE | 2016-08-25 21:31 | NUR ---
Observations 0900 to 2130 Pt affect was pleasant, polite and cooperative. Pt attended group and unit activities. Pt was in [facility] and common areas most of the day. Pt speech and eye contact was good. Pt was social with staff and peers when approached. Pt maintained behavior throughout the shift. Pt attended meals in the D.R. and ate 100% of breakfast, 100% of lunch and 100% of dinner. Pt ate snack. Pt was observed every 15 minutes throughout the shift as ordered.
--- NOTE | 2016-08-25 22:18 | NUR ---
Case Management/Counselor: S: "I do not want to go back to that place." O: Patient slept 7 hours last night per staff. Patient denies S/I and H/I. He denies auditory and visual hallucinations. Depression is "I'm very depressed" and anxiety is "I'm trying to avoid things." A: Patient is cooperative, restricted affect, dysthymic, guarded, limited judgment, limited insight. P: Follow care plan, coordinate out-patient providers.
--- NOTE | 2016-08-26 05:41 | NUR ---
Pt out on unit interacting with peers and watching TV. Asleep at 2315. Pt observed every 15 minutes as ordered.
[2016-08-26 11:42] VITALS: BP 140/90; PULSE 82; RESP 16
--- NOTE | 2016-08-26 13:35 | NUR ---
[id number]. nurs. S:I'm a bit anxious about what is going to happen (when contacts family in [place] re returning there to live) but resting helps (pt on bed in afternoon) O:Pt stating that he was hopeful that contact with family in [place] may bring forth some possibilities for place to stay and some support. Pt reiterating that he cannot cope with returning to [facility]. Pt presenting with flat affect , sitting out on unit, attempting to sleep in chair in his usual position in morning, pt attending to ADLs. A: Pt with flat affect when not interacting, brighter when approached, reporting anxiety and depression "not too bad at present" not responsive to numerical scoring today. Awaiting phonecall to family with MYRTLE Patel, today, pt reports sister rosalinda and g. parents in proposed disposition area. Pt comfortable on unit does not seek much interaction. P:CNCP
--- NOTE | 2016-08-26 19:00 | PCM.PNPSY ---
Subjective Date of Service Aug 26, 2016 Subjective The patient reported that he had not heard back from family members so far this morning. We discussed his sexual functioning as he is currently taking amantadine. Reports overall his sexual functioning is improved but does report some retrograde ejaculation. Today, he plans to wash close and take care of his hygiene. We again discussed returning to [facility] and he stated "I do not feel secure there." At the patient's request, the patient' s mother was contacted and she indicated that she did not feel comfortable having him return home due to the high level of drugs used in the area. She stated she would contact the patient and encouraged him to either live with his sisters or return to [facility]. He denies any side effects. He denies any acute medical issues. Sleep: 6+ hours per staff, "pretty good" Appetite: "Okay" Suicidal and homicidal ideation: Denies Auditory hallucinations/Visual hallucinations: Denies Other Psychotic Symptoms: Denies Anxiety: "Pretty low" 10/06 Depression: 10/06 Mental Status Exam Vital Signs Vital Signs Date Time Temp Pulse Resp B/P Pulse Ox O2 Delivery O2 Flow Rate FiO2 08/26/16 11:42 36.3 82 16 140/90 Appearance: Neat/well groomed Attitude: Cooperative, Guarded (mildly) Behavior: No unusual behavior Affect: Restricted Mood: Dysthymic Thought Process/Associations: Logical/Sequential Speech Production: Paucity Speech Rate: Normal Speech Articulation: Normal Thought Content: Negativistic Danger to Self/Suicidal Ideati: None Danger to Others: None Hallucinations: Auditory (Denies), Visual (Denies) Consciousness: Alert Orientation: Person, Place, Date, Situation Memory: Grossly Intact Estimate Intellectual Function: Average Attention/Concentration & Cogn: Impaired Insight: Limited Judgement: Limited Result Diagram: 08/23/16 0945 08/23/16 0945 Mental Health Plan Client is a 31-year-old male with a ten-year history of psychotic disorder and multiple inpatient hospitalizations. The patient has an ongoing substance use disorder primarily with marijuana which complicates his history. The patient had a prior good response to lithium and clozapine when treated in [place] and again responded to this combination at past hospitalization but had worsening symptoms following discontinuation due to failure to complete laboratory draw. Initially, the patient was showing signs and symptoms of psychotic thought disorder with thought disorganization and other symptoms however he currently is exhibiting no acute symptoms other than perhaps negative symptoms and limited insight. The patient is unsure where he will go on discharge and reports that he does not feel comfortable returning to [facility] or to his sister's. According to the patient's mother, returning home to live with her is also not an option. She stated that she would encourage the patient to return to either his sister 's or to [facility]. The patient appears to have a limited understanding of the cost of living independently. [place] I: Schizophrenia, paranoid type. [place] II: Deferred. [place] III: Left testicular hydrocele. [place] IV: Moderate [place] V: GAF = 40 Medications Amantadine 100 mg twice daily Clozapine 100 mg daily and 200 mg nightly [place] carbonate 1200 mg at bedtime Treatments 1. The patient is provided with a safe environment with no additional precautions necessary at this time. 2. The patient is encouraged to participate in group and milieu therapy. 3. The patient will meet with the treatment team on a daily basis. 4. The patient may return to [facility] should he wish to do so. No other housing is clearly available. 5. The patient will be continued on the above medications. 6. The patient is encouraged to abstain from the use of drugs or alcohol. 7. The patient is currently on a petition for revocation of a 90 day order but as it appears to have been a treatment-related issue, once housing issues are addressed the patient will likely be able to be discharged. 8. Prolactin level down to 14.8 and lithium level in the therapeutic range at 0.7, other lab results essentially within normal limits Monster Dugan MD Aug 26, 2016 19:00
--- NOTE | 2016-08-26 19:11 | NUR ---
Observations 0700 to 1900 Pt maintained behavioral control throughout the shift. Pt is flat, depressed. Pt attended community activities on [place] and set daily goal to do laundry, shower, and get ahold of family. Pt self rated mood at 6/10. Pt Spent most of the day sleeping in TV area or sleeping in room, generally isolating and not seeking interaction. Pt is cooperative when approached. Pt ate 75-100% of meals and was observed every 15 minutes as ordered.
--- NOTE | 2016-08-27 05:57 | NUR ---
Nursing Noc Pt in TV area at beginning of shift and open to conversation. Pt responding appropriately to conversation but only elaborating on subject minimally. Continuing to monitor safety, mood, behavior, emotional state and medications.
--- NOTE | 2016-08-27 13:20 | NUR ---
Nursing Day Shift- S- "I feel some better." O- Pt. was woken at 0815 for breakfast and morning medications. He reported good sleep. Pt. was asked about depression and anxiety and stated, "Just from boredom here." He reported that his mood was improved since his admission. He was observed acting appropriately, resting and relaxing thus far today. A- Appears at ease. Limited insight into behaviors that lead to repeated hospitalizations. P- Cont. TP
[2016-08-27 15:38] VITALS: BP 147/88; PULSE 100; RESP 16
--- NOTE | 2016-08-27 16:43 | NUR ---
Tank Setter Helper./ c.m. S.:"I'm doing pretty good today." O.: met with pt. and MD together to discuss his discharge plan. Pt. slept well last night. He denied SI/HI, denied AH/VH. He took a shower and did laundry today. He spent a lot of time in the Dining room sleeping in a chair. He refused to go to [facility]. talked to pt.'s mother yesterday and she refused to take pt. back. Pt. wasn't surprised hearing this news, but almost expected it. He said that he would try talking to her today again. A.: pt. is cooperative, isolative, quiet, has poor insight into his housing situation. P.: monitor behavior, follow care plan.
--- NOTE | 2016-08-27 18:01 | PCM.PNPSY ---
Subjective Date of Service Aug 27, 2016 Subjective Discussed with the patient that his mother had advised that he not return home and that he could not live with her. Although the patient stated he expected this, he appeared to have difficulty processing information. He stated that there were no other family members as "I break the rules and they kicked me out. " The patient stated that he might just returned to [place] and would figure somewhere else to live although he could not state where. The patient again lamented the loss of having an intimate relationship. He denied side effects from medications. Sleep: 8+ hours per staff Appetite: "Pretty good" Suicidal and homicidal ideation: Denies Auditory hallucinations/Visual hallucinations: Denies Other Psychotic Symptoms: Denies Mental Status Exam Vital Signs Vital Signs Date Time Temp Pulse Resp B/P Pulse Ox O2 Delivery O2 Flow Rate FiO2 08/27/16 15:38 36.3 100 16 147/88 Appearance: Neat/well groomed Attitude: Cooperative, Guarded (mildly) Behavior: No unusual behavior Affect: Restricted Mood: Dysthymic Thought Process/Associations: Logical/Sequential Speech Production: Paucity Speech Rate: Normal Speech Articulation: Normal Thought Content: Negativistic Danger to Self/Suicidal Ideati: None Danger to Others: None Hallucinations: Auditory (Denies), Visual (Denies) Consciousness: Alert Orientation: Person, Place, Date, Situation Memory: Grossly Intact Estimate Intellectual Function: Average Attention/Concentration & Cogn: Impaired Insight: Limited Judgement: Limited Result Diagram: 08/23/16 0945 08/23/16 0945 Mental Health Plan Client is a 31-year-old male with a ten-year history of psychotic disorder and multiple inpatient hospitalizations. The patient has an ongoing substance use disorder primarily with marijuana which complicates his history. The patient had a prior good response to lithium and clozapine when treated in [place] and again responded to this combination at past hospitalization but had worsening symptoms following discontinuation due to failure to complete laboratory draw. Initially, the patient was showing signs and symptoms of psychotic thought disorder with thought disorganization and other symptoms however he currently is exhibiting no acute symptoms other than perhaps negative symptoms and limited insight. The patient is unsure where he will go on discharge and reports that he does not feel comfortable returning to [facility] or to his sister's. Despite being informed that he cannot return to his mother's he seemed that he may try to do this regardless. He stated he would call his mother this evening but would like us to follow up with his, Summer. [place] I: Schizophrenia, paranoid type. [place] II: Deferred. [place] III: Left testicular hydrocele. [place] IV: Moderate [place] V: GAF = 40 Medications Amantadine 100 mg twice daily Clozapine 100 mg daily and 200 mg nightly [place] 1200 mg at bedtime Hydroxyzine 50 mg by mouth twice a day when necessary anxiety or agitation, last used 08/22/2016 Trazodone 50 mg by mouth nightly when necessary insomnia, last used 08/18/2016 Treatments 1. The patient is provided with a safe environment with no additional precautions necessary at this time. 2. The patient is encouraged to participate in group and milieu therapy. 3. The patient will meet with the treatment team on a daily basis. 4. The patient may return to [facility] should he wish to do so. No other housing is clearly available. 5. The patient will be continued on the above medications. 6. The patient is encouraged to abstain from the use of drugs or alcohol. 7. The patient is currently on a petition for revocation of a 90 day order but as it appears to have been a treatment-related issue, once housing issues are addressed the patient will likely be able to be discharged. 8. Prolactin level down to 14.8 and lithium level in the therapeutic range at 0.7, other lab results essentially within normal limits Monster Dugan MD Aug 27, 2016 18:01
--- NOTE | 2016-08-27 18:38 | NUR ---
[facility] Day Shift Pt affect and behavior unchanged from previous shifts. Pt maintained behavioral control throughout the shift. Pt affect appears mostly flat, brighter when engaged with staff and peers. Pt spends most of the shift resting in his room or sitting quietly/watching TV/engaging with peers in the dining room. Pt is pleasant with staff and peers when active on the unit. Pt attended community meeting in the AM (passively). Pt did not participate in unit group activities throughout the shift. Pt attended all meals and ate approx 100% of all meals.
--- NOTE | 2016-08-27 23:06 | NUR ---
NURSING NOTE [id number] Orientation= x3 Mood= "alright" Affect= pleasant, calm, appropriate Behavior= social w/peers, visible on the unit, watching TV for most of the shift, med compliant Thought processes= denies having "any mental health issues whatsoever", says he's "bummed" that he has to be hospitalized, is focused on his family and his disagreements w/them (particularly as they believe he has a mental illness). Denies SI/HI/AH/VH.
--- NOTE | 2016-08-28 04:05 | NUR ---
OBSERVATIONS 1900 TO 0700 Pt was appropriate and cooperative with staff. Pt socialized with peers in dining room and TV area. Pt attended group wrap-up stated that he accomplished goals of washing clothes and getting cleaned up today. Pt rated mood 5/10. Pt is difficult to follow in conversation at times, difficulty verbalizing thoughts. Pt was noted asleep at 2345. Maintained Q15 safety checks as directed.
--- NOTE | 2016-08-28 06:03 | NUR ---
Nursing Noc Pt in TV area at beginning of shift and open to conversation. Reported that mother does not want patient to return home to [place]. Pt responding appropriately to conversation but only elaborating on subject minimally. Continuing to monitor safety, mood, behavior, emotional state and medications. CP
--- NOTE | 2016-08-28 15:08 | NUR ---
Nursing Day Shift- S/O- Pt. was awake for meals and eat well. He denied auditory or visual hallucinations. He was observed in the DR resting and sleeping in front of the TV a large part of the shift. A- Pt. continues to maintain behavioral control. Very limited insight. P- Cont. BHTP.
--- NOTE | 2016-08-28 17:56 | NUR ---
Data Warehousing Engineer./c.m. S./O.: spoke with Soco @ [facility] about pt.'s progress. She was wondering about his legal status. She is keeping a bed for pt. if he agrees to go back there. Spoke with pt.'s sister Shahana about possible discharge to her home. Sister refused to take pt. back. She said that "it is not a good place for him". She was concerned about his housing. She said that pt. disclosed to her that he had AH but he didn't want anybody to know about it. Pt. also wasn't planing to take meds after discharge and that was a big concern for sister. "He can be very violent if he is not taking his medications." Pt. spent most of the day in the Dining room resting or sleeping in a chair near TV. A.: pt. is cooperative, quiet, passive, has a flat affect. Family is concerned about pt.'s discharge. P.: monitor behavior, continue working on placement, follow care plan.
--- NOTE | 2016-08-28 18:35 | NUR ---
Observations [id number] Pt was asleep upon start of shift. Pt attended breakfast, lunch and dinner, eating 100%. Pt's mood appeared distant and blank. Pt attended meals and watched TV. He also played the guitar and listened to music. Pt was friendly with staff and peers He made a comment about his future living situation, stating that he needs to "face the reality of my available options." Pt was was observed every 15 minutes of shift as directed.
--- NOTE | 2016-08-28 20:16 | NUR ---
NURSING NOTE [id number] Orientation= x3 Mood= "tired" Affect= calm, pleasant Behavior= pt is social on unit, watches TV in common area, resting in bed intermittently, med compliant. He attended wrap-up group. Thought processes= denies any SI/HI/AH/VH. Still doesn't appear to have much insight into why he is here and the events that lead him here. He continues to relay disagreements he has with his family regarding his illness and where he should go next.
--- NOTE | 2016-08-28 21:01 | PROG NOTE ---
[address] [address] PROGRESS NOTE PATIENT: PAT DIAZ : 1985 MR#: [id number] ADMIT: 08/18/2016 JOB ID: [id number] DATE: 08/28/2016 CHIEF COMPLAINT: "I just want to go back to [place]. There are way too many rules here." This per patient report. HISTORY OF PRESENT ILLNESS: As stated above, the patient identifies that he continues to have struggles with his current setting. He reviewed that he was evidently kicked out of [facility], however, there is questionable validity. He reports that he is hopeful that his family will support his return back to [place] indicating that he feels that he did much better there. He reportedly does have a petition hearing on Sunday for an extension of his LR90 to LR180, and he remains on all medications noted. OBJECTIVE: On mental status exam, he was cooperative, polite. He recalled myself from prior interactions. His speech is of normal tone, frequency, and volume. His mood is mildly dysphoric. His affect is incongruent at times. His thought process shows no evidence of racing thoughts, flight of ideas. He is somewhat loose but redirectable. On his thought content, he denied any evidence of current suicidal or homicidal ideation. He continues to be quite paranoid. He denies any current hallucinations, delusions. He continues to persist that he just wants a prescription for marijuana as his primary drug of choice. He was alert, oriented to time and place. His attention and concentration are poor. Insight and judgment are poor. PHYSICAL EXAMINATION: Vital signs current: Temperature is 36.3, pulse 100, respirations 16, BP 147/88. MEDICATION REVIEW INCLUDES: 1. Amantadine 100 mg b.i.d. 2. Clozapine 100 mg q.a.m., 200 mg q.h.s. 3. [place] carbonate 1200 mg q.h.s. 4. Ativan 1 mg q.4 hours p.r.n. 5. Trazodone 50 mg, may repeat times 1 at h.s. for insomnia. ASSESSMENT: AXIS I: 1. Schizophrenia, paranoid type. 2. Cannabis use disorder, severe, chronic. AXIS II: 1. Borderline personality features. 2. Antisocial personality features. AXIS III: Left testicular hydrocele, by history. AXIS IV: Unknown. AXIS V: Global assessment of functioning current is 30. PLANS: 1. Recommendations for petition for LR180 on Sunday. 2. Recommendations for continuation of pursuit of disposition including a return back to the [facility]. 3. Continuation of all medications noted.
--- NOTE | 2016-08-29 02:19 | NUR ---
Observations 1900 to 0700 Pt affect and behavior are the same as in his previous times here. Pt spent his entire night watching TV. Pt went to his room as soon as the TV was turned off. Pt first appeared asleep 22:45 and was observed every 15 minutes through the night as directed.
--- NOTE | 2016-08-29 06:16 | NUR ---
Nursing notes: shift superintendent Patient appears to be sleeping on safety checks during the night. No complaints voiced
[2016-08-29 10:00] VITALS: BP 110/66; PULSE 92; RESP 16
--- NOTE | 2016-08-29 12:20 | NUR ---
Nursing: Day shift: S: I'm kine of anxious about tomorrow ( court). I really hope they don't give me 180 days. I want to get on with college. I'm 31 years old. O: Chidi comes out for meals, snacks, and to watch TV. He has flat facial expression. Denies depression or suicidality. Only requests for PRN med is for nicotine losenge a.m. and noon. A: Future oriented. Not talking about delusional material with staff. Still resistant to concept that he needs mental health care. P: Continue to assess for effectiveness of meds.
--- NOTE | 2016-08-29 14:03 | NUR ---
Obs Dayshift Pt is polite, engaged, and appropriate w/ peers. Spends most of his day in bed or watching TV. Pt does participate in some grps, but mostly comm. meeting and wrap-up. Pt is calm, reasonable, oriented x3 - Not quite to situation, pt is hopeful that we will help him get into his own place. Poor ADL's, Good meals
--- NOTE | 2016-08-29 15:45 | NUR ---
Textile Engineer./ c.m. S./O.: called [facility] and spoke with Soco about pt.'s discharge tomorrow. She is expecting him any time after lunch. P.: monitor behavior, discharge to [facility] tomorrow; follow care plan.
--- NOTE | 2016-08-29 16:12 | PROG NOTE ---
[address] [address] PROGRESS NOTE PATIENT: PAT DIAZ : 1985 MR#: [id number] ADMIT: 08/18/2016 JOB ID: [id number] DATE: 08/29/2016 CHIEF COMPLAINT: "I just hope they do not plan on keeping me there for more than six months." This is per patient report. HISTORY OF PRESENT ILLNESS: As stated above, the patient identified that he is aware that they are pursuing a petition of extension of his LR 90 to 180. The patient was informed that [facility] residential treatment program has agreed to accept him back to the program. I have discussed with the deputy court clerk the plan and intent would be to discharge tomorrow under a 180 order. OBJECTIVE: On mental status exam, the patient was cooperative and polite. He maintained good eye contact throughout. He indicated that he is somewhat frustrated with the process and feels controlled by the system. His speech is of normal tone, frequency, and volume. His mood was neutral. Affect congruent. Thought process showed no evidence of racing thoughts, flight of ideas, loose or disconnected thinking. Thought content, he continues to be quite paranoid on appearance. He openly admitted to no evidence of hallucinations but appears to be responding to internal stimulus. He denies any suicidal or homicidal ideation. He was alert, oriented to time and place. Attention and concentration are fleeting. Insight and judgment are poor. PHYSICAL EXAMINATION: Vital signs of current. Temperature is 37.2, pulse 92, respirations 16, BP 110/66. MEDICATION REVIEW: Includes: 1. Clozapine 100 mg q.a.m. and 200 mg q.h.s. 2. [place] carbonate 1200 mg h.s. 3. Symmetrel 100 mg b.i.d. 4. Trazodone 50 mg at h.s. p.r.n. ASSESSMENT: AXIS I 1. Schizophrenia, paranoid type. 2. Cannabis use disorder, severe and chronic. AXIS II 1. Borderline personality features. 2. Antisocial personality features. AXIS III None. AXIS IV History of noncompliance with medications, chronic mental health issues. AXIS V Global Assessment of Functioning current 30. PLAN: 1. Recommendation is for petition for LR 180 with discharge back to [facility] facility on Sunday. 2. Continuation of all medications as noted.
--- NOTE | 2016-08-29 20:35 | NUR ---
Obs Dayshift Pt is not very interested in joining groups, going outside w/ peers. Pt states that he would rather just sit and watch TV. Pt is calm, polite, quiet. Engages with peers from time to time but mostly keeps to himself. Superficial small talk. Very little requests. Pt needs to be pushed to take a shower, odiferous. Poor ADL's, Good meals
--- NOTE | 2016-08-29 21:41 | NUR ---
Nursing Note Kamla Pt up watching movie, attended group and kamla snack. Pt socializing with peers and staff with flat affect. Pt was compliant with HS meds. Pt denied anxiety, depression, SI and hallucinations. Pt stated he was [facility] and stated " I'm going to put my plan up to a higher power". Q15 min safety checks done per protocol, WC sleep, safety,behavior
--- NOTE | 2016-08-30 01:34 | NUR ---
Observations 1900 to 0700 Pt affect and behavior are the same as in his previous times here. Pt spent his entire night watching TV. Pt went to his room as soon as the TV was turned off. Pt first appeared asleep 23:00 and was observed every 15 minutes through the night as directed.
--- NOTE | 2016-08-30 05:59 | NUR ---
Sleep Adequate sleep of 6.25 hours. No noted distress or middle of the night awakening per protocol checks.
--- NOTE | 2016-08-30 09:52 | PCM.DIMED ---
Discharge Instructions Date of Service Aug 30, 2016 Dates of Hospitalization Aug 18, 2016 at 10:11 Discharge Diagnosis Discharge Diagnosis Schizophrenia paranoid type Diet No restrictions Activity No restrictions Adrian Cantu DO Aug 30, 2016 09:52
[2016-08-30] MEDS ORDERED: LITH300T PO (09:54)
[2016-08-30] MEDS ORDERED: TRAZ-118 PO (09:54)
[2016-08-30] MEDS ORDERED: AMN100C PO (09:54)
[2016-08-30] MEDS ORDERED: HYDR50CA3 PO (09:54)
[2016-08-30] MEDS ORDERED: CLOZ100T6 PO ×2 (09:54)
--- NOTE | 2016-08-30 12:02 | NUR ---
Nursing Discharge- Planned discharge to [facility] today. Pt. had slept 6.25 hours per night report. He was awake for breakfast and court. Pt. was not upbeat about returning to [facility], but he was in agreement with the plan due to a lack of alternatives. He was flat, but polite with court and the discharge process. Pt. expressed an understanding of the follow up appointments and plans. His medications were faxed to [facility] before 11 AM as [facility] had requested. Pt. continues to deny depression, anxiety, auditory or visual hallucinations. Pt. was placed on an [address]. He is aware of the terms of the hold.
--- NOTE | 2016-08-30 14:16 | DIS ---
[address] [address] DISCHARGE SUMMARY PATIENT: PAT DIAZ : 1985 MR#: [id number] ADMIT: 08/18/2016 JOB ID: [id number] DIS: 08/30/2016 ADMITTING DIAGNOSES: AXIS I Schizophrenia, paranoid type AXIS II Deferred. AXIS III Left testicular hydrocele. AXIS IV Unknown. AXIS V Global assessment of functioning of current 30. DISCHARGE DIAGNOSES: AXIS I 1. Schizophrenia, paranoid type. 2. Cannabis use disorder. AXIS II 1. Borderline personality disorder. 2. Antisocial personality features. AXIS III 1. Exogenous obesity. 2. History of hydrocele. AXIS IV Stressors are noted for chronic mental health issues, noncompliance. AXIS V Global assessment of functioning of current 40. REASON FOR ADMISSION: The patient was a well-known client who reportedly was detained with LR 90 revocation due to a significant history of noncompliance and refused to cooperate with his staff at the [facility] facility. During the hospital course, the patient agreed to remain on medications of Clozapine 100 mg q. a.m., 200 mg q.h.s. and lithium carbonate 1200 mg q.h.s. Throughout the hospital course, the patient did agree to return back to [facility] for continuation of his care and there was an extension noted of his MR 90 to MR 180. Throughout hospital course, the patient expressed a desire to eventually return back to the [facility] but due to absence of family support and difficulties with financing, he agreed to return to a [facility]. CONDITION ON TIME OF DISCHARGE: The patient's mood and affect were stable. He denied any evidence of current suicidal, homicidal ideation. There was no evidence of further hallucinations, delusions. He remained quite fixated on a belief system that he has a right to use marijuana, but indicated that he needs to get a medical card. He was alert, oriented to time and place. Attention and concentration intact. Insight and judgment are poor. DISCHARGE PLANS: Include: 1. Return back to a [facility] facility for ongoing residential treatment. 2. Continuation of medications including clozapine 100 mg q. a.m., 200 mg q.h.s. one month supply, no refills. Reason for usage: Antipsychotic. 3. Continuation of Vistaril 50 mg 1 tablet b.i.d. p.r.n. for anxiety. One month supply, no refills. Reason for usage: Anxiety. 4. Continuation of lithium carbonate 1200 mg q.h.s., one month supply, no refills. Reason for usage: Mood stabilizer. 5. Continuation of trazodone 50 mg q.h.s., 1 month supply, no refills. Reason for usage: Insomnia. 6. Continuation of amantadine 100 mg b.i.d., one month supply, no refills. Reason for usage: EPS. 7. Continuation of multivitamin 1 tablet daily, one month supply, no refills. Reason for usage: Vitamin replacement.
--- NOTE | 2016-08-30 16:28 | NUR ---
Case Management/Counseling: S: "I need my cigarettes from my sister's place so I can take them with me." O: Met with patient. Patient slept 6.25 hours last night per staff. He denies S/I and H/I. He also denies auditory and visual hallucinations. Depression is 0/10 and anxiety is 5/10. When asked his mood, patient stated, "Tired but diligent." Out-patient appointment: Soco Cr, [facility], 08/30/16 at 4:00pm. A: Patient is cooperative, hopeful, brighter, fair insight, fair judgment. P: Follow care plan, coordinate transportation to [facility], and coordinate with out-patient providers.
--- NOTE | 2016-08-30 16:46 | NUR ---
discharge 1605 left with escort to [facility] with no problems
== END 2016-08-30 16:05 | disposition other institution (70) | DRG 750 ==
LOC: SED 15:08 → MHC 08-18 10:11
PROVIDERS: ADMIT Psychiatry & Neurology Psychiatry; ATTEND Psychiatry & Neurology Psychiatry
DX: F20.0 Paranoid schizophrenia (principal); Z68.42 Body mass index [BMI] 45.0-49.9, adult; R45.851 Suicidal ideations; F22 Delusional disorders; Z91.19 Patient's noncompliance with other medical treatment and regimen; F12.10 Cannabis abuse, uncomplicated; F17.200 Nicotine dependence, unspecified, uncomplicated; F60.3 Borderline personality disorder; F60.2 Antisocial personality disorder; G47.00 Insomnia, unspecified; E66.8 Other obesity